=== PATIENT | male | born 1945 | race Caucasian/White ===

== ENCOUNTER 2017-02-22 17:50 | Observation (INO) | payer MEDICARE, BC ==
[2017-02-22 19:14] LABS: CHLORIDE,CL 107 mmol/L (98-107); SODIUM,NA 144 mmol/L (136-145)
[2017-02-22] MEDS ORDERED: Metoprolol Tartrate 5 MG/5 ML SDV IVPUSH ONE (19:28)
[2017-02-22] MEDS: Metoprolol Tartrate 25 MG Tab PO SCH (20:52)
[2017-02-22] MEDS ORDERED: diphenhydrAMINE 25 MG Cap PO ONE (21:02)
[2017-02-23 08:06] VITALS: BP 124/84
[2017-02-23] MEDS: Metoprolol Tartrate 25 MG Tab PO SCH (08:08)
--- NOTE | 2017-02-23 10:48 | ER ---
Date of Service: 02/22/2017 SUBJECTIVE: Carloz presents to the emergency room with complaints of palpitations. The patient underwent a radiofrequency ablation yesterday at [facility] in [place], which was performed by Dr. Watson from Electrophysiology. The patient underwent the procedure for recurrent supraventricular tachycardia. The patient has been having issues with SVT for approximately 1 year and has had a total of 10 ablation procedures. The patient states that he was discharged from the hospital this morning and soon after he got home, he began experiencing the sensation of extra beats or skipped beats. He denies any sensation of sustained palpitations and states that he has not been experiencing any lightheadedness or sensation that he has been experiencing SVT or other tachydysrhythmias. He is not experiencing any chest pain or shortness of breath. PAST MEDICAL HISTORY: Recurrent supraventricular tachycardia requiring radiofrequency ablation. MEDICATIONS: 1. Pravachol 20 mg daily. 2. Diphenhydramine as needed. 3. Flexeril 10 mg p.o. at bedtime as needed. 4. Aspirin 325 mg p.o. daily. ALLERGIES: NKDA. REVIEW OF SYSTEMS: General: No fever or chills. HEENT: No sore throat, rhinorrhea, or congestion. Respiratory: No shortness of breath. Cardiac: Denies any substernal chest pain. No jaw, arm, neck, or back pain. Positive for palpitations. GI: No nausea, vomiting, or diarrhea. No melena, hematochezia, or hematemesis. : Denies any dysuria. Musculoskeletal: No myalgias or arthralgias. Neurologic: No fainting, blackouts, or lightheadedness. PHYSICAL EXAMINATION: General: This is a 71-year-old male patient, in no acute distress. Vital Signs: Blood pressure is 127/91, respiratory rate 18, O2 saturations 96% on room air. Pulse rate 84, temperature is 35.7. Skin: Warm, pink, and dry. HEENT. Head is normocephalic, atraumatic. Mouth, oral mucosa is moist. Lungs: Clear to auscultation. Skin: Warm, pink, and dry. HEENT: Head is normocephalic, atraumatic. Eyes, PERRLA. Extraocular movements are intact. Mouth, oral mucosa is moist. No erythema or exudate. No hypopharynx. Neck: Supple. No masses. There is no lymphadenopathy. Heart: Irregularly irregular with regular rate. No murmurs are noted. Abdomen: Soft and nontender. There is no hepatosplenomegaly or masses noted. Extremities: Without edema. DIAGNOSTIC DATA: EKG showed sinus rhythm with frequent multifocal PVCs. lace sewer showed frequent multifocal PVCs. No runs of ventricular tachycardia or SVT were noted during his stay in the ER. LABORATORY DATA: WBCs 9.0, hemoglobin is 14.1, platelets are 201, PT is 10.4, INR is 0.9. Sodium is 144, potassium is 3.8, chloride is 107, bicarb is 29, BUN is 14, creatinine is 1.0. GFR is greater than 60. Glucose is 99, calcium is 8.5, corrected calcium is 8.66, total bilirubin is 0.4. AST is 19, ALT is 37. Alkaline phosphatase is 47. CK is 160, CK-MB is 2.0. Troponin is positive at 0.3 to 1. TSH is within normal limits at 2.512. ER COURSE: IV access was established. He was given 5 mg of Lopressor IV. His PVC rate decreased from approximately 20 PVCs per minute to 1. He was no longer experiencing the sensation of the PVCs. He remained stable in my care in the emergency room. ASSESSMENT: 1. Frequent multifocal PVCs status post radiofrequency ablation. 2. Positive troponin. PLAN: I did speak with Dr. Molina, the nuclear weapons custodian on-call at [facility]. He advised admitting the patient to our facility and watching him overnight. The patient will be kept on telemetry. We will start him on oral metoprolol tartrate 25 mg twice daily. We will measure the amount of PVCs he has overnight and will up-titrate the oral dose of metoprolol as needed. The patient is a code level 1. We will repeat troponin at midnight. All questions were answered. MWK: 02/22/2017 20:36:10 MODL: 02/22/2017 21:03:48 /[id number]
--- NOTE | 2017-02-24 02:11 | DISCH ---
ADMITTING AND DISCHARGING PROVIDER: Salas Mathur PA-C. SUBJECTIVE: Mr. Potter presented to the emergency room with complaints of palpitations. He underwent a radiofrequency ablation for supraventricular tachycardia and was discharged yesterday. He has a history of recurrent SVT and has had a total of 10 ablation procedures. He states that shortly after being discharged, he began experiencing these symptoms of palpitation. He is not experiencing any substernal chest pain or shortness of breath. On arrival, the patient was having approximately 15-20 multifocal PVCs on the monitor. He was given Lopressor 5 mg IV and was started on metoprolol tartrate 25 mg twice daily. Once being started on the metoprolol, his PVC rate decreased to 1-2 per minute. PHYSICAL EXAMINATION: General: This is a 71-year-old male patient, who is in no acute distress. He states he is feeling better. Vital Signs: Blood pressure is 91/59, pulse rate 67, temperature is 35.9, respiratory rate is 20, O2 saturations 99%. Skin: Warm, pink, and dry. HEENT: Head is normocephalic, atraumatic. Mouth, oral mucosa is moist. No erythema or exudate noted at the hypopharynx. Neck: Supple without masses. Abdomen: Soft, nontender. There are no masses noted. There is no hepatosplenomegaly noted. Extremities: Without edema. Neurologic. The patient is alert and oriented, answers all questions appropriately. LABORATORY DATA: The patient's troponin was repeated and was found to be down to 0.224 from 0.321. Again, this was discussed with Cardiology and they stated that it was normal to have elevated troponin after ablation procedure. HOSPITAL COURSE: Again, the patient was started on metoprolol tartrate 25 mg 1 by mouth twice daily. I would like him to follow up with Jose Cruz Llanos in 2 weeks as he is not scheduled to see Cardiology for approximately 1 month. DISCHARGE DISPOSITION: Home. ACTIVITY: As tolerated. No driving. Follow the cardiology discharge packet that he received. Return to the emergency room if he develops any recurrence of his palpitations or racing heart, chest pain or shortness of breath. The patient was given a prescription for metoprolol tartrate 25 mg tablets with instructions to take 1 twice daily, the patient was given a total of 60 with no refill. MWK: 02/23/2017 07:41:11 MODL: 02/24/2017 02:03:48 /[id number]
--- NOTE | 2017-02-26 07:43 | ER ---
Date of Service: 02/22/2017 ADDENDUM: This emergency room note may be used as a patient's admission Shirlene and P. NATOK: 02/25/2017 20:01:22 MODL: 02/26/2017 00:05:23 /[id number]
== END 2017-02-23 09:30 | disposition home or self-care (01) ==
LOC: VM.ED 17:50 → VM.MS 19:30
PROVIDERS: ADMIT Physician Assistant; ATTEND Physician Assistant
DX: I49.3 Ventricular premature depolarization (principal); Z79.82 Long term (current) use of aspirin; Z79.899 Other long term (current) drug therapy
CPT/HCPCS: 36415; 71020; 80053; 82550; 82553; 84443; 84484; 85025; 85610; 93005; 96374; 99285; A9270; 99217; 99284-GF; G0378; J3490

== ENCOUNTER 2019-12-11 06:33 | Day surgery (SDC) | payer MEDICARE, BC ==
[2019-12-11] MEDS ORDERED: Sodium Chloride 0.9% 10 ML Syringe FLUSH PRN (07:00)
[2019-12-11] MEDS ORDERED: Lactated Ringers 1,000 ML IV SCH (07:00)
[2019-12-11] MEDS ORDERED: Propofol 200 MG/20 ML SDV ONE ×2 (08:07→08:34)
[2019-12-11] MEDS ORDERED: fentaNYL 100 MCG/2 ML SDV ONE (08:07)
[2019-12-11 09:14] VITALS: BP 114/70; PULSE 71
--- NOTE | 2019-12-11 12:00 | OR ---
PRE-OPERATIVE DIAGNOSIS: Screening colonoscopy with personal history of colon polyps. Last colonoscopy was 5 years ago. POST-OPERATIVE DIAGNOSES: 1. Twelve total polyps removed (5 using hot snare and 7 using cold forceps). a. 6 mm cecal polyp removed with hot snare. b. 3 mm x2 polyps at 75 cm, removed with cold forceps. c. 5 mm polyp, 3 mm polyp, and 2 mm polyp at 70 cm. The 2 larger polyps removed using hot snare and the smaller removed using cold forceps. d. 2 mm polyp at 60 cm, removed with cold forceps. e. 5 mm polyp at 55 cm, removed using hot snare. f. 2 mm polyp x2 at 50 cm, both removed using cold forceps. g. 2 mm polyp at 40 cm removed with cold forceps. h. 10 mm polyp at 30 cm, removed using hot snare. 2. Mild sigmoid diverticulosis. 3. Normal-appearing distal ileum. PROCEDURE: Colonoscopy with polypectomy x12 (5 using hot snare and 7 using cold forceps). ANESTHESIA: Monitored anesthesia care. BOWEL PREP: Good. DESCRIPTION OF PROCEDURE: Jerod is a 74-year-old male who was brought to the endoscopy suite after discussing risks and benefits of the procedure. Informed consent was obtained for conscious sedation and colonoscopy with or without biopsy and/or polypectomy. We also discussed possibility of missed lesions. Pre-procedure exam was unremarkable. IV, oxygen, and monitors were placed. The patient was placed in the left lateral decubitus position. Sedation was administered and a digital rectal exam was performed and unremarkable. Colonoscope was passed into the rectum and slowly advanced all the way to the cecum. Cecum was viewed and photographed. Ileocecal valve was intubated and distal ileum was normal in appearance. Multiple colon polyps were removed throughout the colon as noted above. Otherwise, the ascending colon, transverse colon, descending colon unremarkable. Sigmoid colon did reveal some mild diverticulosis. Retroflexion was performed. Rectal mucosa unremarkable. Scope was removed. The patient tolerated the procedure well. The patient was monitored until that baseline status. Discharge instructions were reviewed and the patient was discharged in good condition. COMPLICATIONS: None. TOTAL TIME: 41 minutes. ESTIMATED BLOOD LOSS: 1 to 2 mL. RECOMMENDATIONS/FOLLOW-UP: We will await results of path report to determine ideal followup interval. I will have the patient hold his aspirin for 5 days to limit any chance of bleeding from the polypectomy sites. I would like to kindly thank Dr. Jonathan Rodriguez for this referral. DMB: 12/11/2019 10:07:29 MODL: 12/11/2019 11:36:14 /[id number]
== END 2019-12-11 09:55 | disposition home or self-care (01) ==
LOC: VM.SDS 06:33
PROVIDERS: ATTEND Family Medicine
DX: Z12.11 Encounter for screening for malignant neoplasm of colon (principal); D12.0 Benign neoplasm of cecum; D12.4 Benign neoplasm of descending colon; D12.5 Benign neoplasm of sigmoid colon; K63.5 Polyp of colon; Z86.010 Personal history of colon polyps; K57.30 Diverticulosis of large intestine without perforation or abscess without bleeding
CPT/HCPCS: 45380; 45384; 45385; 88305; J2704; J3010; J7120

== ENCOUNTER → 2023-03-16 | Day surgery (SDC) | payer MEDICARE, BC ==
[~2023-03-16] MED LIST: Lactated Ringers 1,000 ML IV SCH; Propofol 200 MG/20 ML SDV ONE; Sodium Chloride 0.9% 10 ML Syringe FLUSH PRN; fentaNYL 100 MCG/2 ML SDV ONE
[2023-03-16 09:14] VITALS: BP 134/82; PULSE 82
== END ==
LOC: VM.SDS 06:35
PROVIDERS: ATTEND Student in an Organized Health Care Education/Training Program
DX: Z12.11 Encounter for screening for malignant neoplasm of colon (principal); D12.4 Benign neoplasm of descending colon; D12.5 Benign neoplasm of sigmoid colon; D12.2 Benign neoplasm of ascending colon; D12.3 Benign neoplasm of transverse colon; E78.00 Pure hypercholesterolemia, unspecified; Z86.010 Personal history of colon polyps; I47.1 Supraventricular tachycardia; Z79.899 Other long term (current) drug therapy
CPT/HCPCS: 00811; 88305; J2704; J3010; J7120

== ENCOUNTER 2024-12-23 23:35 | Emergency (ER) | payer MEDICARE, BC ==
[2024-12-23] MEDS ORDERED: Sodium Chloride 0.9% 10 ML Syringe FLUSH PRN (23:41)
[2024-12-23] MEDS: Sodium Chloride 0.9% 1,000 ML IV SCH (23:51)
[2024-12-23 23:58] LABS: BASOPHILS PERCENT AUTO 0.3 % (0.2-1.2); EOSINOPHILS ABSOLUTE AUTO 0.3 x10^3/uL (0.0-0.5); EOSINOPHILS PERCENT AUTO 4.4 % (0.0-4.0); HEMOGLOBIN 15.7 g/dL (14.0-18.0); IMMATURE GRAN ABSOLUTE AUTO 0.02 x10^3/uL (0.00-0.07); LYMPHOCYTES ABSOLUTE AUTO 2.3 x10^3/uL (1.0-4.8); LYMPHOCYTES PERCENT AUTO 29.8 % (25.0-50.0); MEAN CORPUSCULAR HEMOGLOBIN 29.3 pg (26.0-32.0); MEAN CORPUSCULAR HGB CONC 34.9 g/dL (32.0-36.0); MONOCYTES ABSOLUTE AUTO 0.7 x10^3/uL (0.0-0.8); MONOCYTES PERCENT AUTO 9.6 % (2.0-11.0); NEUTROPHILS ABSOLUTE AUTO 4.3 x10^3/uL (1.8-7.7); NEUTROPHILS PERCENT AUTO 55.6 % (50.0-80.0); PLATELET COUNT,PLT 205 x10^3/uL (130-400); RED BLOOD CELL COUNT 5.36 x10^6/uL (4.5-6.0); WHITE BLOOD CELL COUNT,WBC 7.7 x10^3/uL (4.0-10.0)
[2024-12-24 00:26] LABS: TSH ULTRASENSITIVE 6.917 uIU/mL (0.358-3.74)
[2024-12-24 00:28] LABS: APPEARANCE,URINE CLEAR (CLEAR); BILIRUBIN,URINE NEGATIVE (NEGATIVE); COLOR,URINE YELLOW (YELLOW); GLUCOSE,URINE NEGATIVE (NEGATIVE); KETONES,URINE NEGATIVE (NEGATIVE); LEUKOCYTE ESTERASE,URINE SMALL (NEGATIVE); NITRITE,URINE NEGATIVE (NEGATIVE); OCCULT BLOOD,URINE TRACE-INTACT (NEGATIVE); PH,URINE 6.5 (5.0-8.0); PROTEIN,URINE NEGATIVE (NEGATIVE); UROBILINOGEN,URINE 0.2 EU/dL (0.2)
[2024-12-24] MEDS: Carvedilol 3.125 MG Tab PO ONE (00:33)
[2024-12-24 00:37] LABS: A/G RATIO 1.25; ANION GAP 18.9 mmol/L (5-15); BILIRUBIN TOTAL 0.3 mg/dL (0.2-1.0); CALCIUM 8.9 mg/dL (8.5-10.1); CREATININE 0.9 mg/dL (0.70-1.30); EST CRCL DRUG DOSING (CG) 69.85 mL/min; POTASSIUM,K 3.9 mmol/L (3.5-5.1); PROTEIN TOTAL,TP 7.2 g/dL (6.4-8.2)
[2024-12-24 00:53] LABS: BACTERIA,URINE RARE /HPF (NOT SEEN); EPITHELIAL CELLS,URINE RARE; RBC,URINE 0-5 /HPF (NOT SEEN); WBC,URINE 0-5 /HPF (NOT SEEN)
[2024-12-24] MEDS: Carvedilol 12.5 MG Tab PO ONE (01:16)
[2024-12-24 01:46] VITALS: BP 129/74; PULSE 81
== END 2024-12-24 01:40 | disposition home or self-care (01) ==
LOC: VM.ED 23:35
DX: I48.92 Unspecified atrial flutter (principal); E78.00 Pure hypercholesterolemia, unspecified; Z79.899 Other long term (current) drug therapy
CPT/HCPCS: 71046; 80053; 81001; 84443; 84484; 85025; 87086; 93005; 96360; 99285; A9270; J7030